=== PATIENT | female | born 1940 | race African-American/Black ===

== ENCOUNTER 2018-08-30 19:22 | Inpatient (IN) | payer MEDICARE ==
[~2018-08-30] VITALS: Ht 160 cm; Wt 49.9 kg
[2018-08-30 20:21] LABS: BASOPHILS % 1.3 % (0.0-2.0); EOSINOPHILS % 1.8 % (0.0-5.0); HEMATOCRIT. 34.6 % (36.0-48.0); HEMOGLOBIN. 11.4 g/dL (12.0-16.0); LYMPHOCYTES % 15.3 % (20.0-50.0); MEAN CORPUSCULAR HEMOGLOBIN 26.7 pg (28.0-32.0); MEAN CORPUSCULAR VOLUME 81.1 fL (81.0-99.0); MEAN PLATELET VOLUME 7.6 fl (7.4-10.4); MONOCYTES % 6.3 % (2.0-8.0); NEUTROPHILS % 75.3 % (40.0-76.0); PLATELET 344 x1000/uL (130-400); RED BLOOD CELL COUNT 4.27 mill/uL (4.2-5.4); RED CELL DISTRIBUTION WIDTH 17.3 % (11.6-14.6)
[2018-08-30 20:28] LABS: CHLORIDE 102 mEq/L (98-107)
[2018-08-30 20:33] LABS: ETHANOL BLOOD < 10 mg/dL
[2018-08-30] MEDS ORDERED: ONDANSETRON HCL 4MG/2ML INJ IV PRN (22:45)
[2018-08-30] MEDS ORDERED: ACETAMINOPHEN 325MG TABLET PO PRN (22:45)
[2018-08-30] MEDS ORDERED: IPRATROPIUM/ALBUTEROL 0.5-3(2.5)MG/3ML NEB INH PRN (22:45)
[2018-08-30] MEDS ORDERED: MAGNESIUM/ALUMINUM HYDROXIDE/SIMETHICONE 30ML UDC PO PRN (22:45)
[2018-08-30] MEDS ORDERED: CLONIDINE 0.1MG TABLET PO PRN (22:45)
[2018-08-30] MEDS ORDERED: CLONIDINE 0.1MG TABLET PO ONE (23:00)
[2018-08-30 23:15] LABS: CHLORIDE 103 mEq/L (98-107)
[2018-08-30] MEDS ORDERED: LORAZEPAM 1MG TABLET PO ONE (23:30)
[2018-08-31] VITALS: BP 139/88
[2018-08-31 00:48] VITALS: BP 155/94
[2018-08-31 04:00] VITALS: BP 125/77
[2018-08-31 08:00] VITALS: BP 145/83
[2018-08-31] MEDS ORDERED: LORAZEPAM 2MG/ML CPJ IV PRN (09:15)
[2018-08-31] MEDS ORDERED: DONEPEZIL HCL 10MG TABLET PO SCH (09:45)
[2018-08-31 10:48] LABS: EOSINOPHILS % 4.1 % (0.0-5.0); HEMATOCRIT. 34.9 % (36.0-48.0); HEMOGLOBIN. 11.7 g/dL (12.0-16.0); LYMPHOCYTES % 16.8 % (20.0-50.0); MEAN CORPUSCULAR HEMOGLOBIN 27.3 pg (28.0-32.0); MEAN CORPUSCULAR VOLUME 81.8 fL (81.0-99.0); MEAN PLATELET VOLUME 7.9 fl (7.4-10.4); MONOCYTES % 8.1 % (2.0-8.0); PLATELET 354 x1000/uL (130-400); RED BLOOD CELL COUNT 4.27 mill/uL (4.2-5.4); RED CELL DISTRIBUTION WIDTH 17.5 % (11.6-14.6)
[2018-08-31] MEDS: DONEPEZIL HCL 5MG TABLET PO SCH (11:28)
[2018-08-31 11:33] LABS: CREATINE KINASE 141 IU/L (26-192); CREATINE KINASE MB FRACTION 1.3 ng/mL (0.5-3.6); HDL CHOLESTEROL 102 mg/dL (40-59); LDL CHOLESTEROL 82 mg/dL (5-100)
[2018-08-31 12:00] VITALS: BP 104/61
[2018-08-31 12:13] LABS: CLARITY URINE CLEAR (CLEAR); COLOR URINE YELLOW (YELLOW); KETONES URINE NEGATIVE (NEGATIVE); LEUKOCYTE ESTERASE URINE TRACE (NEGATIVE); NITRITE URINE NEGATIVE (NEGATIVE); OCCULT BLOOD URINE NEGATIVE (NEGATIVE); PH URINE 7.5 (4.5-8.0); PROTEIN URINE NEGATIVE (NEGATIVE); SPECIFIC GRAVITY URINE 1.017 (1.005-1.030); UROBILINOGEN URINE 0.2 E.U./dL (0.2-1.0)
[2018-08-31 12:33] LABS: T4 FREE 0.91 ng/dL (0.76-1.46)
[2018-08-31 12:54] LABS: FOLIC ACID (FOLATE) SERUM >20 ng/mL ng/mL (>5.38); VITAMIN B12 SERUM 1048 pg/mL (211-911)
[2018-08-31 13:18] LABS: *BENZODIAZEPINES SCREEN URINE NEGATIVE (NEGATIVE); METHADONE URINE SCREEN NEGATIVE (NEGATIVE); OPIATES URINE SCREEN NEGATIVE (NEGATIVE)
[2018-08-31 13:26] LABS: *AMPHETAMINES SCREEN URINE NEGATIVE (NEGATIVE); *BARBITURATES SCREEN URINE NEGATIVE (NEGATIVE); *COCAINE SCREEN URINE NEGATIVE (NEGATIVE); CANNABINOID URINE SCREEN NEGATIVE (NEGATIVE); PHENCYCLIDINE URINE SCREEN NEGATIVE (NEGATIVE)
[2018-08-31 16:00] VITALS: BP 124/70
[2018-08-31 16:20] LABS: AMMONIA 25 uMol/L (<32)
[2018-08-31 16:27] LABS: CREATINE KINASE 113 IU/L (26-192); CREATINE KINASE MB FRACTION < 1.0 ng/mL (0.5-3.6)
[2018-08-31] MEDS: HALOPERIDOL LACTATE 5MG/ML VIAL IM PRN (18:01)
[2018-08-31] MEDS ORDERED: RANI-633 PO (18:30)
[2018-08-31] MEDS ORDERED: FOLI20CA PO (18:30)
[2018-08-31] MEDS ORDERED: DOCU-286 PO (18:30)
[2018-08-31] MEDS ORDERED: TRAZ-212 PO (18:30)
[2018-08-31] MEDS ORDERED: QUET50TA PO (18:30)
[2018-08-31] MEDS ORDERED: AMLO5TAB88 PO (18:30)
[2018-08-31] MEDS ORDERED: ATOR20TA65 PO (18:30)
[2018-08-31] MEDS ORDERED: ACET325T52 PO (18:30)
[2018-08-31] MEDS ORDERED: MULT-230 MT (18:30)
[2018-08-31] MEDS ORDERED: VIT1TABL86 PO (18:30)
[2018-09-01] VITALS: BP 142/92
[2018-09-01] MEDS: HALOPERIDOL LACTATE 5MG/ML VIAL IM PRN ×2 (01:22→22:30)
[2018-09-01 04:00] VITALS: BP 133/90
[2018-09-01 08:00] VITALS: BP 145/82
[2018-09-01 08:06] LABS: BASOPHILS % 0.8 % (0.0-2.0); EOSINOPHILS % 3.9 % (0.0-5.0); HEMATOCRIT. 31.5 % (36.0-48.0); HEMOGLOBIN. 10.4 g/dL (12.0-16.0); LYMPHOCYTES % 18.8 % (20.0-50.0); MEAN CORPUSCULAR HEMOGLOBIN 26.7 pg (28.0-32.0); MEAN CORPUSCULAR VOLUME 80.8 fL (81.0-99.0); MEAN PLATELET VOLUME 7.9 fl (7.4-10.4); MONOCYTES % 9.3 % (2.0-8.0); NEUTROPHILS % 67.2 % (40.0-76.0); PLATELET 327 x1000/uL (130-400)
[2018-09-01 09:30] LABS: CHLORIDE 104 mEq/L (98-107)
[2018-09-01] MEDS: DONEPEZIL HCL 5MG TABLET PO SCH (09:43)
[2018-09-01 12:00] VITALS: BP 143/78
[2018-09-01 16:00] VITALS: BP 144/73
[2018-09-01 20:00] VITALS: BP 141/77
[2018-09-02] VITALS (7 sets, daily range): BP systolic 121–161; BP diastolic 69–79
[2018-09-02 07:15] LABS: BASOPHILS % 0.8 % (0.0-2.0); EOSINOPHILS % 3.1 % (0.0-5.0); HEMATOCRIT. 32.9 % (36.0-48.0); HEMOGLOBIN. 10.8 g/dL (12.0-16.0); LYMPHOCYTES % 17.6 % (20.0-50.0); MEAN CORPUSCULAR HEMOGLOBIN 26.7 pg (28.0-32.0); MEAN CORPUSCULAR VOLUME 81.1 fL (81.0-99.0); MEAN PLATELET VOLUME 8.1 fl (7.4-10.4); MONOCYTES % 9.2 % (2.0-8.0); NEUTROPHILS % 69.3 % (40.0-76.0); PLATELET 331 x1000/uL (130-400); RED BLOOD CELL COUNT 4.05 mill/uL (4.2-5.4); RED CELL DISTRIBUTION WIDTH 17.4 % (11.6-14.6)
[2018-09-02 07:33] LABS: CHLORIDE 105 mEq/L (98-107)
[2018-09-02] MEDS: DONEPEZIL HCL 5MG TABLET PO SCH (08:17)
[2018-09-02] MEDS: HALOPERIDOL LACTATE 5MG/ML VIAL IM PRN (19:38)
== END 2018-09-02 22:24 | DRG 93 ==
LOC: ER 19:22 → EDBEDREQTM 22:42 → EDBEDREQ 22:42 → 6EST 22:42 → EDBEDREQSVC 22:43 → ENRESERV 22:49
PROVIDERS: ADMIT Internal Medicine; ATTEND Internal Medicine
DX: G92 Toxic encephalopathy (principal); I10 Essential (primary) hypertension; E78.5 Hyperlipidemia, unspecified; G31.9 Degenerative disease of nervous system, unspecified; F02.80 Dementia in other diseases classified elsewhere, unspecified severity, without behavioral disturbance, psychotic disturbance, mood disturbance, and anxiety; Z86.73 Personal history of transient ischemic attack (TIA), and cerebral infarction without residual deficits
CPT/HCPCS: 36415; 70551; 71045; 80048; 80061; 80305; 82140; 82550; 82553; 82607; 82746; 83036; 84439; 84443; 84481; 84484; 93005; 97162; 97166; 99285; G0482; J1630